=== PATIENT | female | born 1950 | race Caucasian/White ===

== ENCOUNTER 2020-09-07 05:58 | Day surgery (SDC) | payer MEDICARE, SELFPAY ==
[2020-09-01 15:19] VITALS: BMI 27.4
--- NOTE | 2020-09-05 08:44 | P.CONAN_ITS ---
Documented by User: Reyna Sanz 09/05/20 08:46 HPI - Anesthesia Eval Consult details Narrative: 69yo F for Right Knee Arthroscopy [facility] Past Medical History Medical History (Updated 09/05/20 @ 08:45 by Reyna Sanz) Anxiety Arthritis Back pain Depression SVT (supraventricular tachycardia) Trigger finger Surgical History Surgical History (Updated 09/01/20 @ 15:13 by Piedad Lindsay) History of bunionectomy History of radiofrequency ablation procedure for cardiac arrhythmia Hx of bilateral cataract extraction Hx of cholecystectomy Hx of colonoscopy Hx of dilation and curettage Social History Social History Smoking Status: Never smoker Use of substances other than those prescribed or required for medical reasons: No Advance Directives: No Advance Directives Information Provided: Yes Advance Directives on File: No Meds Allergies Allergy/AdvReac Type Severity Reaction Status Date / Time No Known Allergies Allergy Verified 09/05/20 08:46 Home Medications Medication Instructions Recorded Confirmed Type calcium carbonate [Calcium 600] mg PO BID 09/01/20 History diclofenac sodium 1 tab PO BID 09/01/20 09/01/20 History meloxicam 1 tab PO DAILY 09/01/20 09/01/20 History metoprolol succinate 12.5 mg PO DAILY 09/01/20 09/01/20 History omega 8-krv-vyb-fish oil [Fish Oil] 1 cap PO DAILY 09/01/20 09/01/20 History sertraline 1 tab PO DAILY 09/01/20 09/07/20 History simvastatin 1 tab PO BEDTIME 09/01/20 09/01/20 History Exam Exam Date and Time: September 05, 2020 0844 Height,Weight and Vital Signs: Height 5 ft 4 in Weight 72.575 kg Assessment and Plan Assessment Anesthesia Assessment: Chart Reviewed Documented by User: Lissett Gandhi 09/07/20 07:49 [facility] Past Medical History Medical History (Updated 09/05/20 @ 08:45 by Reyna Sanz) Anxiety Arthritis Back pain Depression SVT (supraventricular tachycardia) Trigger finger Family History Family history of problems with anesthesia: No Surgical History Surgical History (Updated 09/01/20 @ 15:13 by Piedad Lindsay) History of bunionectomy History of radiofrequency ablation procedure for cardiac arrhythmia Hx of bilateral cataract extraction Hx of cholecystectomy Hx of colonoscopy Hx of dilation and curettage History of Problems with Anesthesia: No Social History Social History Smoking Status: Never smoker Use of substances other than those prescribed or required for medical reasons: No Advance Directives: No Advance Directives Information Provided: Yes Advance Directives on File: No Meds Allergies Allergy/AdvReac Type Severity Reaction Status Date / Time No Known Allergies Allergy Verified 09/05/20 08:46 Home Medications Medication Instructions Recorded Confirmed Type calcium carbonate [Calcium 600] mg PO BID 09/01/20 History diclofenac sodium 1 tab PO BID 09/01/20 09/01/20 History meloxicam 1 tab PO DAILY 09/01/20 09/01/20 History metoprolol succinate 12.5 mg PO DAILY 09/01/20 09/01/20 History omega 0-dbk-kfl-fish oil [Fish Oil] 1 cap PO DAILY 09/01/20 09/01/20 History sertraline 1 tab PO DAILY 09/01/20 09/07/20 History simvastatin 1 tab PO BEDTIME 09/01/20 09/01/20 History Exam Height,Weight and Vital Signs: Vital Signs Temp Pulse Resp BP Pulse Ox 09/07/20 06:38 97.5 F 74 20 141/76 H 97 Airway Mallampati Class: II TM Dist: >3cm Neck ROM: Full Partial: Upper Heart: RRR Lungs: CTAB Assessment and Plan Assessment Anesthesia Assessment: Anesthesia Plan Discussed and Chart Reviewed Final Anesthetic Review NPO: Yes ASA Class: II Patient Risk: Low Procedure Risk: Low Anesthetic Plan Anesthetic Plan: GA Disposition: Standard PACU
[2020-09-07 06:38] VITALS: BP 141/76; PULSE 74; RESP 20; TEMP 36.4; O2SAT 97
[2020-09-07] MEDS: Lactated Ringers 1,000 ML 100 ML IVCONT (06:47)
--- NOTE | 2020-09-07 07:05 | MHC.SHP ---
Pre-Procedural Eval Section A The patient is an INPATIENT: No Changes since office visit: No Cold of Flu in the past 2 weeks, No New Medical Problems, No Changes in Medication and No Patient answered all questions The History & Physical has been completed within 30 days and I have reviewed it.: Yes Section B Chief Complaint: medial meniscus tear Allergies: Allergies Allergy/AdvReac Type Severity Reaction Status Date / Time No Known Allergies Allergy Verified 09/05/20 08:46 Plan Patient has been examined and remains a candidate for the planned procedure
[2020-09-07 08:26] VITALS: BP 123/73; PULSE 62; RESP 12; TEMP 36.1; O2SAT 97
[2020-09-07 08:31] VITALS: BP 129/68; PULSE 75; RESP 17; O2SAT 94
[2020-09-07 08:36] VITALS: BP 131/68; PULSE 66; RESP 16; O2SAT 95
[2020-09-07 08:41] VITALS: BP 132/81; PULSE 71; RESP 18; O2SAT 96
--- NOTE | 2020-09-07 08:47 | PM.PRCOR ---
Brief Operative Note Date of procedure: 09/07/20 Pre-op diagnosis: medial meniscal tear right knee Post-op diagnosis: other (medial meniscal tear, superior plicae,oa anterior copartment right knee) Procedure: arthroscopic surgery right knee Anesthesia: GLMA Surgeon: Eric Durbin Estimated blood loss (mL): 0 Pathology: none sent Condition: stable Disposition: PACU
[2020-09-07 08:56] VITALS: BP 144/84; PULSE 61; RESP 18; O2SAT 97
--- NOTE | 2020-09-07 09:30 | HO.POSTANES ---
Post Anesthesia Evaluation Post Anesthesia Evaluation Vital Signs: Vital Signs Temp Pulse Resp BP Pulse Ox 09/07/20 08:56 61 18 144/84 H 97 09/07/20 08:41 71 18 132/81 96 09/07/20 08:36 66 16 131/68 95 09/07/20 08:31 75 17 129/68 94 09/07/20 08:26 97.0 F 62 12 123/73 97 09/07/20 06:38 97.5 F 74 20 141/76 H 97 Anesthesia: General LMA Mental Status: Awake Pain Control: Satisfactory Nausea/Vomiting: None Hydration: Adequate Anesthesia-Related Issues: No Anes. Related Issues
--- NOTE | 2020-09-11 11:37 | OP_ITS ---
SURGEON: Eric Durbin MD PREOPERATIVE DIAGNOSIS: Medial meniscal tear, right knee. POSTOPERATIVE DIAGNOSIS: PROCEDURE PERFORMED: 1. Partial medial meniscectomy, right knee. 2. Resection of superior plica, right knee. 3. Debridement of anterior compartment, right knee. ESTIMATED BLOOD LOSS: COMPLICATIONS: ANESTHESIA: ASSISTANTS: SPECIMENS: POSTOPERATIVE DIAGNOSES: 1. Medial meniscal tear, right knee. 2. Superior plica, right knee. 3. Grade 3 injury, patella, right knee. CLINICAL NOTE: This lady has had ongoing problem with pain and discomfort involving her knee. She subsequently failed nonoperative management. After explaining the risks, benefits, and alternatives and answering all the questions, it was mutually agreed upon to carry out the following procedure. MOTION: Full range of motion. STABILITY: Cruciate and collateral ligaments intact. DESCRIPTION OF PROCEDURE: PREPARATION: GA, standard technique, tourniquet to 300 mmHg for 18 minutes. SURGICAL TIME-OUT: The patient was identified, procedure confirmed, site confirmed. Medical analogy and history reviewed. Preoperative antibiotics were given. Standard DVT prophylaxis was in place. All other items were discussed and agreed upon. INCISIONS: Superolateral, inferolateral, inferomedial, stab incisions. SYNOVIUM: Normal. SYNOVIAL FLUID: Clear. MEDIAL COMPARTMENT: There was complex tearing of posterior horn of medial meniscus resected using a combination of handheld cutters and power shaver to stable meniscus. The tibial and femoral articular surfaces were intact. INTERCONDYLAR NOTCH: ACL visualized, palpated intact. PCL palpated intact. LATERAL COMPARTMENT: Lateral meniscus, tibial and femoral articular surfaces, popliteus tendon all stable and intact. ANTERIOR COMPARTMENT: Medial and lateral gutters clear. In the suprapatellar pouch, there was a plica that extended across the whole surface the superior portion from the patella. This was resected using handheld cutters and power shaver. The patella itself had some grade 3 injury in the mid zone and the medial facet, which was debrided using the power shaver. The femoral sulcus had some grade 2 softening. CLOSURE: 30 mL of half and half mixture of 0.75% Marcaine with epinephrine and normal saline was injected into knee. Steri-Strips and sterile dressing then applied. RECOMMENDATIONS: 1. Restore motion strength. 2. Resume activity as tolerated. 3. Discharge today with prescription for Tylenol No. 3, 20 tablets. 4. Follow up in the office in 10 days' time. MD GOOD Damian/VIRGILIO / [id number]
== END 2020-09-07 09:30 | disposition home or self-care (01) ==
PROVIDERS: Orthopaedic Surgery; PCP Internal Medicine; Visit Provider Nurse Anesthetist, Certified Registered
PROC: (CPT 29870; principal; 2020-09-07 07:30)
DX: S83.231A Complex tear of medial meniscus, current injury, right knee, initial encounter (principal); M67.51 Plica syndrome, right knee; M17.11 Unilateral primary osteoarthritis, right knee; X58.XXXA Exposure to other specified factors, initial encounter; Y93.9 Activity, unspecified; Y92.9 Unspecified place or not applicable; Y99.8 Other external cause status; F32.9 Major depressive disorder, single episode, unspecified; I47.1 Supraventricular tachycardia; Z79.899 Other long term (current) drug therapy; Z90.49 Acquired absence of other specified parts of digestive tract
CPT/HCPCS: 29881; J0171; J1100; J1885; J2250; J2405; J3010

== ENCOUNTER → 2020-09-22 13:37 | Outpatient (BNVA) | payer MEDICARE, SELFPAY | PROVIDERS: PCP Internal Medicine; Referring Provider Internal Medicine; Visit Provider Physician Assistant | DX: M17.11 Unilateral primary osteoarthritis, right knee (principal); S83.241A Other tear of medial meniscus, current injury, right knee, initial encounter; X58.XXXA Exposure to other specified factors, initial encounter; Y93.9 Activity, unspecified; Y92.9 Unspecified place or not applicable; Y99.8 Other external cause status | CPT/HCPCS: 99212 ==

== ENCOUNTER → 2020-09-22 13:37 | Outpatient (BNVA) | payer MEDICARE, SELFPAY | PROVIDERS: PCP Internal Medicine; Referring Provider Internal Medicine; Visit Provider Physician Assistant | DX: S83.249A Other tear of medial meniscus, current injury, unspecified knee, initial encounter (principal); X58.XXXA Exposure to other specified factors, initial encounter; M17.11 Unilateral primary osteoarthritis, right knee | CPT/HCPCS: 29880 ==

== ENCOUNTER 2021-11-01 13:38 | Outpatient (REF) | payer MEDICARE, SELFPAY ==
--- NOTE | ~2021-11-01 | XR_ITS ---
EXAMINATION: XR FOOT, LEFT CLINICAL INFORMATION: Pain COMPARISON: None TECHNIQUE: AP, lateral, and oblique views of the left foot. FINDINGS: There is no fracture or dislocation. Alignment is anatomic. Joint spaces are relatively maintained. Chronic appearing absence of the head of the fifth digit proximal phalanx. Small osteophytes at the first metatarsophalangeal joint. The soft tissues are unremarkable. Small heel spurs. XR/XR foot LT min 3V IMPRESSION: No acute abnormality. Mild degenerative changes at the first metatarsophalangeal joint. Small heel spurs.
== END 2021-11-01 13:39 | disposition home or self-care (01) ==
LOC: HO.HMGCX 13:38
PROVIDERS: PCP Internal Medicine; Visit Provider Nurse Practitioner Family
DX: M79.672 Pain in left foot (principal); S99.922A Unspecified injury of left foot, initial encounter; X58.XXXA Exposure to other specified factors, initial encounter; Y93.9 Activity, unspecified; Y92.9 Unspecified place or not applicable; Y99.8 Other external cause status
CPT/HCPCS: 73630

== ENCOUNTER → 2022-03-28 13:56 | Outpatient (RCR) | payer MEDICARE, SELFPAY ==
--- NOTE | 2020-09-27 15:00 | MHC.PT.EP ---
[facility] [place] [facility] [place] [facility] [place] [facility] [address] [phone] F: [phone] F: [phone] F: [phone] F: [phone] Physical Therapy Plan of Care Date of Evaluation: 09/27/20 Date of Surgery: 09/07/20 Diagnosis: R knee medial meniscectomy Assessment: Patient is a 69 year old R handed female who presents with s/s consistent with R medial meniscectomy. She is retired and not active at this time but would like to get back to being able to walk and be as active as she was before. Patient past medical history is non-contributory. Current impairments include pain, ROM, strength, activity tolerance and functional mobility. Functional limitations include decreased ability to walk, stand, transfer, negotiate stairs, and perform weight bearing activities.. Patient is motivated with good rehab potential. Skilled PT will address impairments and functional limitations in order to achieve goals. Frequency and Duration: The patient will be seen 2x/week for 6 weeks Short Term Goals: I with HEP - 2 weeks AROM 128 - 3 weeks Symmetrical gait with amb and stair negotiation - 3 weeks Insurance Agency Owner Goals: Able to walk/stand > 1 hour without increased pain - 5 weeks No swelling - 4 weeks LEFS 64/80 - 6 weeks Treatment Plan: Modalities to reduce pain, spasms and effusion. Manual therapy to restore motion and function. Therapeutic exercise to improve strength and flexibility. Neuromuscular re-education for posture and balance. Therapeutic activities to return to functional activities of daily living. Please sign and return to therapist. Thank you for your referral.
--- NOTE | 2022-03-28 13:56 | MHC.PT.EP ---
[facility] [place] [facility] [place] [facility] [place] [facility] [address] [phone] F: [phone] F: [phone] F: [phone] F: [phone] Physical Therapy Plan of Care Date of Evaluation: Date of Surgery: 09/07/20 Diagnosis: R knee medial meniscectomy Assessment: Patient is a 69 year old R handed female who presents with s/s consistent with R medial meniscectomy. She is retired and not active at this time but would like to get back to being able to walk and be as active as she was before. Patient past medical history is non-contributory. Current impairments include pain, ROM, strength, activity tolerance and functional mobility. Functional limitations include decreased ability to walk, stand, transfer, negotiate stairs, and perform weight bearing activities.. Patient is motivated with good rehab potential. Skilled PT will address impairments and functional limitations in order to achieve goals. Frequency and Duration: The patient will be seen 2x/week for 6 weeks Short Term Goals: I with HEP - 2 weeks AROM 128 - 3 weeks Symmetrical gait with amb and stair negotiation - 3 weeks Jail Goals: Able to walk/stand > 1 hour without increased pain - 5 weeks No swelling - 4 weeks LEFS 64/80 - 6 weeks Treatment Plan: Modalities to reduce pain, spasms and effusion. Manual therapy to restore motion and function. Therapeutic exercise to improve strength and flexibility. Neuromuscular re-education for posture and balance. Therapeutic activities to return to functional activities of daily living. Electronically signed by: Please sign and return to therapist. Thank you for your referral.
== END | disposition home or self-care (01) ==
LOC: HO.PTCHIC 09-27 13:42
PROVIDERS: PCP Internal Medicine; Visit Provider Physician Assistant
DX: S83.249D Other tear of medial meniscus, current injury, unspecified knee, subsequent encounter (principal)
CPT/HCPCS: 97110; 97161

== ENCOUNTER 2024-04-06 11:37 | Outpatient (AMB) | payer MEDICARE, SELFPAY ==
[2024-04-06 11:47] VITALS: BP 122/80; PULSE 74; TEMP 36.6; O2SAT 97; BMI 33.5
--- NOTE | 2024-04-06 11:47 | AM.OFFWIN_ITS ---
Intake Vital Signs 04/06/24 11:47 Height 5 ft 4 in Weight 195 lb BMI 33.5 BP 122/80 Blood Pressure Location Rt brachial Position Sitting Pulse 74 Pulse Source Pulse Oximeter Temp 97.8 F Temp Source Oral Pulse Oximetry (%) 97 Intake Visit Reasons: EP left wrist / hand swollen no injury Intake Note: pt is here for left wrist and hand swollen. denies injury ongoing for a few days Patient Tobacco Use Status: Never used Tobacco Allergies No Known Allergies Allergy (Verified 04/06/24 12:42) Medication List - Last Reconciled 04/06/24 by Flip Schofield MD calcium carbonate (Calcium 600) mg PO BID meloxicam 1 tab PO DAILY metoprolol succinate ER 12.5 mg PO DAILY mirtazapine 7.5 mg PO BEDTIME omega 5-tnh-wti-fish oil 1,000 mg (120 mg-180 mg) (Fish Oil) 1 cap PO DAILY rivastigmine 1 patch topical DAILY sertraline 1 tab PO DAILY sertraline 100 mg PO DAILY simvastatin 1 tab PO BEDTIME Do you need a note to return to daycare/school/sports/work: No HPI EP left wrist / hand swollen no injury HPI Details 73 yr old female presents to the office for a sick visit. Patient is reporting pain in the left wrist and swelling. Sx present for the past week. Does not recall any trauma. She cannot recall a recent fall, but has fallen in the remote past. [facility] Medical History Anxiety Arthritis Back pain Depression SVT (supraventricular tachycardia) Trigger finger Surgical History History of bunionectomy History of radiofrequency ablation procedure for cardiac arrhythmia Hx of bilateral cataract extraction Hx of cholecystectomy Hx of colonoscopy Hx of dilation and curettage Social History Patient Tobacco Use Status: Never used Tobacco Physical Exam Vital Signs: Last Vital Signs Temp 97.8 F 04/06/24 11:47 Pulse 74 04/06/24 11:47 BP 122/80 04/06/24 11:47 Pulse Ox 97 04/06/24 11:47 BMI result Body Mass Index 33.5 Extrem Other: Left hand: Prominent Thenar eminence. Pain on flexion, extention, adduction and abduction of the thumb. Minimal discomfirt in the anatomical snuff box. Assessment & Plan Assessment & Plan (1) Wrist pain, left: Code(s): M25.532 - Pain in left wrist Plan: X ray images were personally revd by me.ISSAC wrap provided. No fracture seen. OTC NSAIDS suggested. Orders: Orders XR wrist LT w scaphoid Today M25.532 - Pain in left wrist Coding Level of Care Code Est Pt Level 4 (96096) Diagnoses Wrist pain, left M25.532
== END 2024-04-06 12:53 | disposition home or self-care (01) ==
PROVIDERS: PCP Internal Medicine; Visit Provider Internal Medicine
DX: M25.532 Pain in left wrist (principal)
CPT/HCPCS: 99214

== ENCOUNTER 2024-04-06 12:23 | Outpatient (REF) | payer MEDICARE, SELFPAY ==
--- NOTE | ~2024-04-06 | XR_ITS ---
EXAMINATION: XR WRIST WITH SCAPHOID, LEFT CLINICAL INFORMATION: Left wrist pain. COMPARISON: None. TECHNIQUE: PA, oblique, lateral, and scaphoid views of the left wrist. FINDINGS: No acute fracture or dislocation. Normal carpal alignment. Moderate triscaphe and first carpal metacarpal joint space narrowing with sclerosis and small marginal osteophytes. No osseous erosion. No abnormal soft tissue calcification. XR/XR wrist LT w scaphoid IMPRESSION: Moderate triscaphe and first carpometacarpal osteoarthritis.
== END 2024-04-06 12:24 | disposition home or self-care (01) ==
LOC: HO.HMGCX 12:23
PROVIDERS: PCP Internal Medicine; Visit Provider Internal Medicine
DX: M18.9 Osteoarthritis of first carpometacarpal joint, unspecified (principal)
CPT/HCPCS: 73110

== ENCOUNTER 2024-05-05 10:44 | Outpatient (AMB) | payer MEDICARE, SELFPAY ==
--- NOTE | 2024-05-05 11:22 | A.OFFVIS_ITS ---
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 Patient reports that she has had pain in the base of the left thumb for about a month. She has swelling and pain at the CMC joing of the left thumb. denies numbness and tingling, increased pain with movement. She has been wearing a small thumb spica velcro brace which has not helped her pain . 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 She complains of pain & swelling at the base of her thumb for several months now. Her pain is worse with pinching or gripping activities. She finds no relief from wearing a thumb brace She denies any numbness or tingling. She does not remember specifically what she was doing when her pain worsened. [facility] Medical History Anxiety Arthritis Back pain Depression SVT (supraventricular tachycardia) Trigger finger Surgical History History of bunionectomy History of radiofrequency ablation procedure for cardiac arrhythmia Hx of bilateral cataract extraction Hx of cholecystectomy Hx of colonoscopy Hx of dilation and curettage Social History Patient Tobacco Use Status: Never used Tobacco Review of Systems Const All systems reviewed & are unremarkable except as noted in HPI and below Physical Exam Vital Signs: BMI result Body Mass Index 33.5 Const General: cooperative, healthy appearing and no acute distress Orientation/consciousness: patient oriented x3 HEENT Head: Yes normocephalic and Yes atraumatic Eyes EOM: EOMs intact bilaterally Resp Effort & Inspection: normal respiratory effort and able to speak in complete sentences Cardio Jugular venous distension: no JVD Skin General skin exam: turgor normal Rashes: no rashes Neuro General: patient oriented x3 Extrem Other: Evaluation of Left Upper Extremity: The patient is alert, oriented, and in no acute distress Neuro: Median, Ulnar, Radial nerves motor and sensory intact and sensation is normal to the tips of all digits Vascular: Cap refill brisk ROM: She can make a fist and extend all her digits No locking or catching Skin: No lacerations or abrasions. General: No Ecchymosis. No Erythema or evidence of infection. Tender over the Basal joint + shoulder sign + CMC grind No tenderness over the MCP joint No tenderness over the a1 gary No tenderness over the 1st dorsal compartment Negative Karthik test Radiographs: 3 views of the left hand were taken and viewed by me today in clinic. they show no fractures or dislocations. There is some basal joint arthritis, with joint space narrowing, subchondral sclerosis, and osteophyte formation. Psych Appearance: grossly normal Affect: normal affect Attitude: cooperative Office Procedures Fracture Care Details: No fracture, injection Fracture Billing Code: Fracture Billing Code Assessment & Plan Assessment & Plan (1) Osteoarthritis of carpometacarpal (CMC) joint of left thumb: Code(s): M18.12 - Unilateral primary osteoarthritis of first carpometacarpal joint, left hand Category: Medical Plan Assessment & Plan: 1. Left basal joint osteoarthritis I educated her about this condition I discussed operative and non-operative treatment options The patient would like to proceed with an injection I discussed activity modification, they should limit or avoid any heavy or repetitive pinching or gripping activities She was fitted for a comfort cool brace to wear with daily activity Injection #1 : The risks and benefits of a steroid injection including but not limited to risk of damage to blood vessels, nerve, tendon, infection, skin bleaching, persistent or worsening pain, and failure to improve symptoms were discussed with the patient and they wish to proceed with the steroid injection. Once consent was obtained the skin over the dorsum of the Left basal joint was sterilely prepped. The joint was then injected with a combination of 1 mL of (40 mg/ml} Depo-Medrol and 1% plain Lidocaine. The patient appears to have tolerated the procedure well and with no complications. She had good early relief before leaving clinic today. She knows that they may not have another steroid injection into this joint for least 4 months. Scribed for Vanessa Becker MD by Waldo Cortez senior medical writer, on 05/05/24 at 11:35 AM, EST. Coding Level of Care Code New Pt Level 4 (99336) Diagnoses Osteoarthritis of carpometacarpal (CMC) joint of left thumb M18.12 CPT Codes Fracture Care - Fracture Billing Code: Fracture Billing Code ([id number])
[2024-05-05 11:29] VITALS: BMI 33.5
== END 2024-05-05 12:10 | disposition home or self-care (01) ==
PROVIDERS: PCP Internal Medicine; Visit Provider Orthopaedic Surgery
DX: M18.12 Unilateral primary osteoarthritis of first carpometacarpal joint, left hand (principal)
CPT/HCPCS: 20600; 99204

== ENCOUNTER → 2024-05-05 10:44 | Outpatient (BNVA) | payer MEDICARE, SELFPAY | PROVIDERS: PCP Internal Medicine; Visit Provider Orthopaedic Surgery | DX: M18.12 Unilateral primary osteoarthritis of first carpometacarpal joint, left hand (principal) | CPT/HCPCS: 20600; 99202; J1010 ==

== ENCOUNTER 2024-07-02 10:59 | Outpatient (REF) | payer MEDICARE, SELFPAY | END 2024-07-02 11:00 | disposition home or self-care (01) | LOC: HO.MAMMO 10:59 | PROVIDERS: PCP Internal Medicine; Visit Provider Internal Medicine | DX: Z13.89 Encounter for screening for other disorder (principal) ==

== ENCOUNTER 2024-08-05 09:11 | Outpatient (REF) | payer MEDICARE, SELFPAY ==
--- NOTE | ~2024-08-05 | MM_ITS ---
EXAMINATION: MM SCREENING DIGITAL BREAST TOMOSYNTHESIS, BILATERAL CLINICAL INFORMATION: Screening. Asymptomatic. COMPARISON: Mammography: Comparison is made with available priors TECHNIQUE: Digital breast mammography with tomosynthesis is performed in both the craniocaudal and mediolateral oblique views along with computer-aided detection (CAD). FINDINGS: There are scattered areas of fibroglandular density (ACR BI-RADS breast composition Category b). There are no significant masses, abnormal calcifications, or other abnormalities. MM/MM tomosynthesis screening BI IMPRESSION: No mammographic evidence of malignancy. ASSESSMENT: BI-RADS BI-RADS 1 - Negative RECOMMENDATION: Routine annual mammography screening. 1 year F/U This examination should not preclude the clinical evaluation of a suspicious palpable abnormality. This patient's information was entered into a reminder system with a target due date for their next mammogram. Electronically signed by: Vicky Jang DO 08/18/2024 07:47 PM EDT
== END 2024-08-05 09:12 | disposition home or self-care (01) ==
LOC: HO.MAMMO 09:11
PROVIDERS: PCP Internal Medicine; Visit Provider Internal Medicine
DX: Z12.31 Encounter for screening mammogram for malignant neoplasm of breast (principal)
CPT/HCPCS: 77063; 77067

== ENCOUNTER → 2024-08-05 09:30 | Outpatient (BNV) | payer MEDICARE, SELFPAY | PROVIDERS: PCP Internal Medicine; Visit Provider Internal Medicine | DX: Z12.31 Encounter for screening mammogram for malignant neoplasm of breast (principal) | CPT/HCPCS: 77063; 77067 ==

== ENCOUNTER 2025-05-06 11:16 | Outpatient (REF) | payer MEDICARE, SELFPAY ==
--- NOTE | ~2025-05-06 | XR_ITS ---
EXAMINATION: XR PELVIS CLINICAL INFORMATION: R10.2 - Pelvic and perineal pain COMPARISON: None available. TECHNIQUE: AP view of the pelvis. FINDINGS: No fracture or dislocation. The pelvis is intact. The sacrum is intact. There are degenerative changes in the lower lumbar spine and mild changes in the SI joints. Mild degenerative changes in bothb hip joints noted. There is a surgical clip in the right pelvis. There are small enthesophytes of the greater trochanters. There is no soft tissue abnormality. XR/XR pelvis min 3V IMPRESSION: No acute findings of the pelvis. Electronically signed by: Joseph Gomes MD 05/06/2025 12:09 PM EDT
== END 2025-05-06 11:17 | disposition home or self-care (01) ==
LOC: HO.HMGCX 11:16
PROVIDERS: PCP Internal Medicine; Visit Provider Physician Assistant
DX: R10.2 Pelvic and perineal pain (principal); M54.50 Low back pain, unspecified
CPT/HCPCS: 72190; 99212

== ENCOUNTER 2025-05-06 11:16 | Outpatient (AMB) | payer MEDICARE, SELFPAY ==
[2025-05-06 11:16] VITALS: BP 130/80; PULSE 73; TEMP 36.5; O2SAT 95; BMI 33.2
--- NOTE | 2025-05-06 11:16 | AM.OFFWIN_ITS ---
Intake Vital Signs 05/06/25 11:16 Height 5 ft 4 in Weight 193 lb 8 oz BMI 33.2 BP 130/80 Blood Pressure Location Lt brachial Position Sitting Pulse 73 Pulse Source Pulse Oximeter Temp 97.7 F Temp Source Oral Pulse Oximetry (%) 95 Oxygen Delivery Method Room Air Intake Visit Reasons: EP Back pain Intake Note: Pt presents to the office today for c/o lower left sided back pain. Pt states this started about 1 month ago. Pt denies any UTI symptoms. Patient Tobacco Use Status: Never used Tobacco Allergies No Known Allergies Allergy (Verified 05/06/25 11:16) HPI HPI Comments History of Present Illness Details This is a 74-year-old female presenting for evaluation of left-sided low back pain that has been present for the past 2 months. Patient denies any injury or trauma preceding the onset of her symptoms and her pain has not improved despite the use of Tylenol. Patient describes the pain as a steady ache that does not radiate. PFSH Medical History Anxiety Arthritis Back pain Depression SVT (supraventricular tachycardia) Trigger finger Surgical History History of bunionectomy History of radiofrequency ablation procedure for cardiac arrhythmia Hx of bilateral cataract extraction Hx of cholecystectomy Hx of colonoscopy Hx of dilation and curettage Social History Patient Tobacco Use Status: Never used Tobacco Review of Systems Const All systems reviewed & are unremarkable except as noted in HPI and below Eyes Reports no additional complaints ENT Reports no additional complaints Card Reports no additional complaints Resp Reports no additional complaints GI Reports no additional complaints Reports no additional complaints Musc Reports back pain Skin/Breast Reports system reviewed and no additional complaints, except as documented Neuro Reports no additional complaints Psych Reports no additional complaints Endo Reports no additional complaints Kurt/Lymph Reports no additional complaints Aller/Immun Reports no additional complaints Physical Exam Const General: cooperative, healthy appearing, comfortable and no acute distress Nutritional Appearance: average body habitus Orientation/consciousness: patient oriented x3 Limitations: no limitations Back/Spine/Pelvis Thoracic/Lumbar Spine: thoracic and lumbar spine normal to inspection, straight leg raise negative bilaterally, No pain with thoraco-lumbar ROM, No paraspinal muscle tenderness, No thoraco-lumbar spasm, No thoracic spinal tenderness and No lumbar spinal tenderness Pelvis: no pain with anterior-posterior compression and Other pelvic findings (m ild discomfort at the superior aspect of the left posterior iliac crest) Sacroiliac joints: bilaterally nontender Coccyx: Other pelvic findings (mild discomfort at the superior aspect of the left posterior iliac crest) Skin General skin exam: no rashes or lesions noted Neuro General: patient oriented x3 Psych Appearance: grossly normal Mental Status: mental status grossly normal Insight: Good insight present (Psych) Judgement: Good judgement present (Psych) Assessment & Plan Assessment & Plan (1) Lumbar pain: Comment: No acute findings noted on imaging. Patient will be discharged home with anti- inflammatory and muscle relaxant. Code(s): M54.50 - Low back pain, unspecified Plan: Prednisone 40 mg daily x5 days, methocarbamol 500 mg 3 times daily. Follow up with PCP as needed. Orders: Orders XR pelvis min 3V Today R10.2 - Pelvic and perineal pain Medications: New prednisone 40 mg (2 x 20 mg) PO DAILY 10 tabs 0RF methocarbamol 500 mg PO TID 20 tabs 0RF Coding Level of Care Code Est Pt Level 3 (86511) Diagnoses Lumbar pain M54.50 Time Spent (min) 20
--- OUTSIDE RECORDS SUMMARY | 2025-05-06 12:18 | XMS_ITS | Continuity of Care Document ---
Author Organization [facility] Address [address] [address] Phone Care Team Providers Care Flavor Maker Name Role Phone Unavailable Unavailable Unavailable Medications [...] Diagnoses Date Provider Providers Copied on Encounter [facility], [address] [place] [address], [address], [place] tel:[phone] [facility] No Information 8 No Information [address], [address], [place] tel:[phone] [facility] No Information No Information [address], [address], [place] tel:[phone] [facility] No Information 8 No Information [address], [address], [place] tel:[phone] [facility] No Information 0 8 No Information [facility], [address] [place] [address], [place], [address], [place] tel:[phone] [facility] No Information 2 8 No Information [facility], [address] [place] [address], [place], [address], [place] tel:[phone] [facility] No Information 8 No Information [facility], [address] [place] [address], [place], [address], [place] tel:[phone] [facility] No Information 8 No Information Family History Family Member Type Diagnosis Age At Onset No Information Payers Payer name Insurance type Covered alliance party ID Authoriza tion(s) No Information Social [...]
== END 2025-05-06 12:08 | disposition home or self-care (01) ==
PROVIDERS: PCP Internal Medicine
DX: M54.50 Low back pain, unspecified (principal)

== ENCOUNTER → 2025-05-06 11:43 | Outpatient (BNV) | payer MEDICARE, SELFPAY | PROVIDERS: PCP Internal Medicine; Visit Provider Radiology Diagnostic Radiology | DX: R10.2 Pelvic and perineal pain (principal) | CPT/HCPCS: 72190 ==

== ENCOUNTER 2025-07-20 13:33 | Outpatient (AMB) | payer MEDICARE, SELFPAY ==
--- OUTSIDE RECORDS SUMMARY | 1998-08-20 20:00 | XMS_ITS | Continuity of Care Document ---
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 Role Phone Unavailable Unavailable Unavailable Medications Medication Instructions Dosage Effective Dates (start - stop) Status Comments isoniazid 100 mg tablet - No Longer Active isoniazid 100 mg tablet - No Longer Active isoniazid 100 mg tablet - No Longer Active isoniazid 100 mg tablet - No Longer Active isoniazid 100 mg tablet - No Longer Active isoniazid 100 mg tablet - No Longer Active Advance Directives Directive Yes / No Effective Date File Name No Information Encounters Encounter Description Practice Location Reason(s) For Visit Diagnoses Date Provider Providers Copied on Encounter [facility], [address] [place] [address], [address], [place] tel:[phone] [facility] No Information 8 No Information [address], [address], [place] tel:[phone] [facility] No Information No Information [address], [address], [place] tel:[phone] [facility] No Information No Information [address], [address], [place] tel:[phone] [facility] No Information 0 8 No Information [facility], [address] [place] [address], [place], [address], [place] tel:[phone] [facility] No Information 2 8 No Information [facility], [address] [place] [address], [place], [address], [place] tel:[phone] [facility] No Information 8 No Information [facility], [address] [place] [address], [place], [address], [place] tel:[phone] [facility] No Information 8 No Information Family History Family Member Type Diagnosis Age At Onset No Information Payers Payer name Insurance type Covered constitution party ID Authoriza tion(s) No Information Social History Type Description Quantity Date Captured Comments Sex Female Smoking Status No Information Chief Complaint And Reason For Visit No Information Reason For Referral Reason For Referral No Information History Of Present Illness Encounter Date Complaint History Of Prese nt Illness No Information Functional Status Date Functional Assessmen t No Information Instructions Date Instruction Additional Infor mation No Information Assessments Type Assessment Date No Information Patient Care Teams Name Effective Dates (start - stop) Status Members No Information
--- NOTE | 2025-07-20 13:37 | MHC.OFFVIS ---
Vital Signs 07/20/25 13:48 Height 5 ft 4 in Weight 193 lb BMI 33.1 Intake Visit Reasons: OV-Lt hand pain f/u last inj 05/05/24 Intake Note: Adrianna is a 74 year old right hand dominant man who presents today for a follow up visit for her osteoarthritis of CMC joint of left thumb status post left basal joint injection, date of injection: 05/05/24. Patient would like to repeat injection. Allergies No Known Allergies Allergy (Verified 07/20/25 14:04) HPI HPI OV-Lt hand pain f/u last inj 05/05/24: Details: Adrianna is a 74 year old right hand dominant woman who returns for her left basal joint arthritis. She has a Hx of a basal joint injection, done on 05/05/24 with good relief. She complains of pain & swelling at the base of her thumb. Her pain is worse with pinching or gripping activities. She says her pain returned again recently. She would like a repeat injection today. She denies any numbness or tingling. She says she has been limiting or avoiding heavy use of her left hand when possible [facility] Medical History Anxiety Arthritis Back pain Depression SVT (supraventricular tachycardia) Trigger finger Surgical History History of bunionectomy History of radiofrequency ablation procedure for cardiac arrhythmia Hx of bilateral cataract extraction Hx of cholecystectomy Hx of colonoscopy Hx of dilation and curettage Social History Patient Tobacco Use Status: Never used Tobacco Review of Systems Const All systems reviewed & are unremarkable except as noted in HPI and below Physical Exam Const General: no acute distress and alert Orientation/consciousness: patient oriented x3 Neuro General: patient oriented x3 Extrem Other: Evaluation of Left Upper Extremity: The patient is alert, oriented, and in no acute distress Median, Ulnar, Radial nerves motor and sensory intact and sensation is normal to the tips of all digits Cap refill brisk ROM: She can make a fist and extend all her digits No locking or catching Tender over the Basal joint + shoulder sign + CMC grind No tenderness over the MCP joint No tenderness over the a1 gary No tenderness over the 1st dorsal compartment Negative Karthik test Radiographs: 3 views of the left hand from 05/05/24 were reviewed by me today in clinic. they show no fractures or dislocations. There is some basal joint arthritis, with joint space narrowing, subchondral sclerosis, and osteophyte formation. Psych Appearance: grossly normal Affect: normal affect Attitude: cooperative Office Procedures AMB Fracture Care Details: No fracture, injection Fracture Billing Code: Fracture Billing Code Assessment & Plan Assessment & Plan (1) Osteoarthritis of carpometacarpal (CMC) joint of left thumb: Code(s): M18.12 - Unilateral primary osteoarthritis of first carpometacarpal joint, left hand Category: Medical Plan Assessment & Plan: 1. Left basal joint osteoarthritis, S/P injection Date of injection: 07/20/25, 05/05/24 I educated her about this condition I discussed operative and non-operative treatment options The patient would like to proceed with a repeat injection I discussed activity modification, they should limit or avoid any heavy or repetitive pinching or gripping activities She should work on ROM exercises, and avoid any gripping or strengthening activities I discussed the use of assistive devices for daily activity Injection #1: The risks and benefits of a steroid injection including but not limited to risk of damage to blood vessels, nerve, tendon, infection, skin bleaching, persistent or worsening pain, and failure to improve symptoms were discussed with the patient and they wish to proceed with the steroid injection. Once consent was obtained the skin over the dorsum of the Left basal joint was sterilely prepped. The joint was then injected with a combination of 1 mL of dexamethasone (4mg/ml) and 1% plain Lidocaine. The patient appears to have tolerated the procedure well and with no complications. She had good early relief before leaving clinic today. She knows that they may not have another steroid injection into this joint for least 4 months. Please note that greater than 30 minutes was spent with this patient going over the history, evaluating the patient and radiographs, formulating possible treatment options, discussing them with the patient, and documenting the visit. Scribed for Vanessa Becker MD by Waldo Cortez quality engineer medical device, on 07/20/25 at 1:45 PM, EST. Coding Level of Care Code Est Pt Level 3 (35469) Diagnoses Osteoarthritis of carpometacarpal (CMC) joint of left thumb M18.12 CPT Codes Fracture Care - Fracture Billing Code: Fracture Billing Code ([id number])
[2025-07-20 13:48] VITALS: BMI 33.1
--- OUTSIDE RECORDS SUMMARY | 2025-07-20 14:21 | XMS_ITS | Clinical Summary ---
Author Organization [facility] [address] [facility] Address [address] [place] [address] Phone Care Team Providers Care Manager Beauty Name Role Phone Mono Larson MD Primary Care Provider [phone] Allergies No known active allergies Medications calcium carbonate-vitam in D3 (Calcium 600 with Vitamin D3) 600 mg-10 mcg (400 unit) chewable tablet Chew. Active mirtazapine (REMERON) 7.5 mg tablet Take 1 tablet (7.5 mg total) by mouth. Active simvastatin (ZOCOR) 20 mg tablet Take 1 tablet (20 mg total) by mouth. Active rivastigmine (EXELON) 13.3 mg/24 hour 04/06/2025 Active meloxicam (MOBIC) 7.5 mg tablet Take 1 tablet (7.5 mg total) by mouth 1 (one) time each day. Active memantine (NAMENDA) 10 mg tablet 1 tablet (10 mg total). 02/15/2025 Active metoprolol succinate (TOPROL-XL) 25 mg 24 hr tablet 1 tablet (25 mg total). 12/24/2024 Active sertraline (ZOLOFT) 100 mg tablet 1 tablet (100 mg total). 04/06/2025 Active omega-3 acid ethyl esters (LOVAZA) 1 gram capsule Take 1 capsule (1 g total) by mouth 2 (two) times a day. Active MOMETASONE FUROATE, BULK, MISC Active Social History Tobacco Use Types Packs/Day Years Used Date Smoking Tobacco: Never Smokeless Tobacco: Never Alcohol Use Standard Drinks/Week Comments Never 0 (1 standard drink = 0.6 oz pur e alcohol) Comments Unknown Sex and Gender Information Value Date Recorded Sex Assigned at Female 04/14/2025 12:52 PM EDT Legal Sex Female 11:43 PM EST Gender Identity Female 04/14/2025 12:52 PM EDT Sexual Orientation Not on file Obstetrics History Plan of Treatment Health Maintenance Due Date Last Done Comments DTaP,Tdap,and Td Vaccines (1 - Tdap) 1971 Pneumococcal Vaccine: 50+ Years (1 of 1 - PCV) 2002 Zoster Vaccines (1 of 2) 2002 Colorectal Cancer Screening: Colonoscopy 10/27/2022 Falls Risk Assessment 10/27/2022 Hepatitis C Screening 10/27/2022 Medicare Annual Wellness Visit 10/27/2022 Osteoporosis Screening (Bone Density Screening) 10/27/2022 Social Influencers of Health Screening 10/27/2022 COVID-19 Vaccine ( - 2023- season) 2024 Depression Screening 11/24/2024 Influenza Vaccine (#1) 2025 Breast Cancer Screening 07/31/2025 07/31/20 23, 07/11/2022, 07/09/2021, Additional history exists RSV Immunization Adult Patients (1 - 1-dose 75+ series) 2027 HIB Vaccines Aged Out No longer eligi ble based on patient's age to complete this topic HPV Vaccines Aged Out No longer eligi ble based on patient's age to complete this topic Hepatitis A Vaccines Aged Out No long er eligible based on patient's age to complete this topic Hepatitis B Vaccines Aged Out No long er eligible based on patient's age to complete this topic IPV Vaccines Aged Out No longer eligi ble based on patient's age to complete this topic MMR Vaccines Aged Out No longer eligi ble based on patient's age to complete this topic Meningococcal ACWY Vaccine Aged Out N o longer eligible based on patient's age to complete this topic Meningococcal B Vaccine Aged Out No l onger eligible based on patient's age to complete this topic RSV Immunization Patients Under 20 months Aged Out No longer eligible based on patient's age to complete this topic Varicella Vaccines Aged Out No longer eligible based on patient's age to complete this topic Procedures Procedure Name Priority Date/Time Associated Diagnosis Comments [facility] SCREENING DIGITAL Routine 07/31/2023 11:48 AM EDT Encounter for screening mammogram for malignant neoplasm of breast from Last 3 Months or Most Recently Relevant to Health Maintenance Results * [facility] SCREENING DIGITAL (07/31/2023 11:48 AM EDT) Anatomical Region Laterality Modality Mammography 07/31/2023 10:2 4 AM EDT Narrative 07/31/2023 11:[address] [facility] Diagnostic Imaging Department [address] [place] [address] Patient: REJIVIMALADRIANNA Y /Age/Sex: 1950 - 72 - F Unit#: [id number] [facility]Ordering Site: [facility] Ordering Physician: MONO LARSON MD [facility] Screening Digital - 07/31/23 - 1103 Report Status:Signed EXAM: [facility] Screening Digital EXAM DATE AND TIME: 07/31/2023 11:04 AM HISTORY: Annual screening COMPARISON: 07/11/2022, 07/09/2021, 07/05/2020 TECHNIQUE: Bilateral digital breast tomosynthesis was performed in the CC and MLO projections. Computer aided detection with [employer] 3D 3.1 was employed. TISSUE DENSITY: b. There are scattered areas of fibroglandular density. FINDINGS: No suspicious masses, grouped microcalcifications, or areas of architectural distortion are seen. The skin and vascularity are unremarkable. IMPRESSION: Stable mammographic appearance of the breasts. No evidence of malignancy is seen. A negative mammogram in the presence of a clinically suspicious palpable abnormality does not preclude the possibility of malignancy or alter the indications for biopsy. BI-RADS: Category 1: Negative RECOMMENDATION(S): 1: Routine screening mammogram BILATERAL in 1 year. 3341F, 7025F Dictating Physician: MONO ZUÑIGA MD Electronically Signed by: MONO ZUÑIGA MD Dic Date/Time: 07/31/23 1147 Sign date/Time: 07/31/23 1148 Procedure Note Mono Zuñiga - 12/30/2023 [facility] Diagnostic Imaging Department [address] [place] [address] Patient: ADRIANNA COONEY Bertram /Age/Sex: 1950 72 -F Unit#: [id number] [facility] Mnemonic[facility]Ordering Site: [facility] Ordering Physician: MONO LARSON MD [facility] Screening Digital - 07/31/23 - 1103 Report Status:Signed EXAM: [facility] Screening Digital EXAM DATE AND TIME: 07/31/2023 11:04 AM HISTORY: Annual screening COMPARISON: 07/11/2022, 07/09/2021, 07/05/2020 TECHNIQUE: Bilateral digital breast tomosynthesis was performed in the CCand MLO projections. Computer aided detection with [employer] 3D 3.1was employed. TISSUE DENSITY: b. There are scattered areas of fibroglandular density. FINDINGS: No suspicious masses, grouped microcalcifications, or areas ofarchitectural distortion are seen. The skin and vascularity are unremarkable. IMPRESSION: Stable mammographic appearance of the breasts. No evidence of malignancyis seen. A negative mammogram in the presence of a clinically suspicious palpable abnormality does not preclude the possibility of malignancy or alter the indications for biopsy. BI-RADS: Category 1: Negative RECOMMENDATION(S): 1: Routine screening mammogram BILATERAL in 1 year. 3341F, 7025F Dictating Physician: MONO ZUÑIGA MD Electronically Signed by: MONO ZUÑIGA MD Dic Date/Time: 07/31/23 1147 Sign date/Time: 07/31/23 1148 Mono Larson MD IMG BI PROCEDURES Final Result from Last 3 Months or Most Recently Relevant to Health Maintenance Insurance [employer] MED[employer]ARE Care Teams Manager Beauty Relationship Specialty Start Date End Date Mono Larson MD [address] [place] [id number] PCP - General Internal Medicine 04/14/25
== END 2025-07-20 14:19 | disposition home or self-care (01) ==
LOC: HO.HOS 13:33
PROVIDERS: Visit Provider Orthopaedic Surgery
DX: M18.12 Unilateral primary osteoarthritis of first carpometacarpal joint, left hand (principal)
CPT/HCPCS: 20600; 99213

== ENCOUNTER → 2025-07-20 13:33 | Outpatient (BNVA) | payer MEDICARE, SELFPAY | PROVIDERS: Visit Provider Orthopaedic Surgery | DX: M18.12 Unilateral primary osteoarthritis of first carpometacarpal joint, left hand (principal) | CPT/HCPCS: 20600; 99212; J1100; J2003 ==

== ENCOUNTER 2025-08-11 09:14 | Outpatient (REF) | payer MEDICARE, SELFPAY ==
--- OUTSIDE RECORDS SUMMARY | 2025-08-11 10:43 | XMS_ITS | Clinical Summary ---
Author Organization [facility] 299 [facility] Address [address] [place] [address] Phone Care Team Providers Care Home Health Billing Specialist Name Role Phone Mono Larson MD Primary Care Provider [phone] Allergies No known active allergies Medications calcium [...] 10/27/2022 Social Influencers of Health Screening 10/27/2022 Depression Screening 11/24/2024 COVID-19 Vaccine ( - season) 2025 Influenza Vaccine (#1) 2025 Breast Cancer Screening [...] Procedure Name Priority Date/Time Associated Diagnosis Comments [facility] SCREENING DIGITAL Routine 07/31/2023 11:48 AM EDT Encounter for screening mammogram for malignant neoplasm of breast from Last 3 Months or Most Recently Relevant to Health Maintenance Results * [facility] SCREENING DIGITAL (07/31/2023 11:48 AM EDT) Anatomical Region Laterality Modality Mammography 07/31/2023 10:2 4 AM EDT Narrative 07/31/2023 11:48 AM EDT [facility] Diagnostic Imaging Department [address] [place] [address] Patient: REJIVIMALADRIANNA Y /Age/Sex: 1950 - 72 - F Unit#: [id number] [facility]Ordering Site: [facility] Ordering Physician: MONO LARSON MD [facility] Screening Digital - 07/31/23 - 1103 Report Status:Signed EXAM: [facility] Screening Digital EXAM DATE AND TIME: 07/31/2023 11:04 AM HISTORY: Annual screening COMPARISON: 07/11/2022, 07/09/2021, 07/05/2020 TECHNIQUE: Bilateral digital breast tomosynthesis was performed in the CC and MLO projections. Computer aided detection with [employer] 3D 3.1 was employed. TISSUE DENSITY: b. [...] 1148 Procedure Note Mono Zuñiga - 12/30/2023 [facility] Diagnostic Imaging Department [address] [place] [address] Patient: ADRIANNA COONEY Bertram /Age/Sex: 1950 72 -F Unit#: [id number] [facility] Mn[facility]onic/[facility]ing Site: [facility] Ordering Physician: MONO LARSON MD [facility] Screening Digital - 07/31/23 - 1103 Report Status:Signed EXAM: [facility] Screening Digital EXAM DATE AND TIME: 07/31/2023 [...] Maintenance Insurance [employer] MED[employer] Care Teams Home Health Billing Specialist Relationship Specialty Start Date End Date Mono Larson MD [address] [place] [id number] PCP - General Internal Medicine 04/14/25
== END 2025-08-11 09:15 | disposition home or self-care (01) ==
LOC: HO.MAMMO 09:14
PROVIDERS: PCP Internal Medicine; Visit Provider Internal Medicine
DX: Z12.31 Encounter for screening mammogram for malignant neoplasm of breast (principal)
CPT/HCPCS: 77063; 77067

== ENCOUNTER → 2025-08-11 09:30 | Outpatient (BNV) | payer MEDICARE, SELFPAY | PROVIDERS: PCP Internal Medicine; Visit Provider Internal Medicine | DX: Z12.31 Encounter for screening mammogram for malignant neoplasm of breast (principal) | CPT/HCPCS: 77063; 77067 ==